=== PATIENT | male | born 1960 | race Caucasian/White ===

== ENCOUNTER 2018-06-01 11:37 | Observation (INO) | payer OTHER ==
--- NOTE | 2018-06-01 11:46 | EDPHY ---
H & P Time Seen by Provider: 06/01/18 11:40 HPI/ROS: CHIEF COMPLAINT: Post colonoscopy bleeding HISTORY OF PRESENT ILLNESS: The patient presents to the ED with complaints of post colonoscopy bleeding. The patient recently had a colonoscopy and had 3 polyps resected. He has had increasing bright red blood per rectum over the past day. He discussed this with the covering director orange Dr. Garcia who recommended he come to the emergency department evaluation and likely admission. The patient reports approximately 5 episodes of bloody bowel movements over the past 24 hr. He denies any associated lightheadedness or dizziness. The patient does take a baby aspirin on a daily basis. The patient did take a Celebrex tablet last night. REVIEW OF SYSTEMS: A comprehensive 10 point review of systems is otherwise negative aside from elements mentioned in the history of present illness. Source: Patient Exam Limitations: No limitations - Physical Exam Exam: General Appearance: Alert, no distress Eyes: Pupils equal and round no pallor or injection ENT, Mouth: Mucous membranes moist Respiratory: There are no retractions, lungs are clear to auscultation Cardiovascular: Regular rate and rhythm Gastrointestinal: Abdomen is soft and nontender, no masses, bowel sounds normal Neurological: 5/5 strength all 4 extremities Skin: Warm and dry, no rashes Musculoskeletal: Neck is supple nontender Extremities: symmetrical, full range of motion Psychiatric: Patient is oriented X 3, there is no agitation Constitutional: Initial Vital Signs Temperature (C) 36.9 C 06/01/18 11:46 Heart Rate 72 06/01/18 11:46 Respiratory Rate 16 06/01/18 11:46 Blood Pressure 138/90 H 06/01/18 11:46 O2 Sat (%) 96 06/01/18 11:46 O2 Delivery Mode Room Air Allergies/Adverse Reactions: rosuvastatin calcium [From Crestor] Allergy (Severe, Verified 01/30/11 07:16) MUSCLE WEAKNESS amiodarone [Amiodarone] Allergy (Verified 01/30/11 07:16) Rash Home Medications: Medication Instructions Recorded Aspirin 325 mg 01/26/10 Levothyroxine 01/26/10 Protonix 01/26/10 metoPROLOL TART 01/26/10 Medical Decision Making ED Course/Re-evaluation: The case was discussed with Dr. Garcia from Gastroenterology. He recommends admission to hospital. The patient is currently hemodynamically stable with a reassuring initial CBC. The patient has been typed and screened. The patient will be admitted to the hospital and have a bowel prep today. Consultation was made with the hospitalist service at 12:30 p.m.. The patient will be admitted by Dr. Ilan Multani. Differential Diagnosis: Differential diagnosis considered includes critical anemia, lower GI bleed, coagulopathy - Data Points Laboratory Results: Laboratory Results 06/01/18 11:50 06/01/18 11:50 06/01/18 06/01/18 06/01/18 11:50 11:50 11:50 WBC RBC Hgb Hct MCV MCH MCHC RDW Plt Count MPV Neut % (Auto) Lymph % (Auto) [place] % (Auto) Eos % (Auto) Baso % (Auto) Nucleat RBC Rel Count Absolute Neuts (auto) Absolute Lymphs (auto) Absolute Monos (auto) Absolute Eos (auto) Absolute Basos (auto) Absolute Nucleated RBC Immature Gran % Immature Gran # PT 13.7 SEC SEC (12.0-15.0) INR 1.03 (0.83-1.16) APTT 33.1 SEC SEC (23.0-38.0) Sodium 140 mEq/L mEq/L (135-145) Potassium 3.7 mEq/L mEq/L (3.3-5.0) Chloride 107 mEq/L mEq/L (97-110) Carbon Dioxide 21 mEq/l L mEq/l (22-31) Anion Gap 12 mEq/L mEq/L (8-16) BUN 25 mg/dL H mg/dL (7-23) Creatinine 0.9 mg/dL mg/dL (0.7-1.3) Estimated GFR > 60 Glucose 97 mg/dL mg/dL (70-100) Calcium 9.8 mg/dL mg/dL (8.5-10.4) Patient ABO/Rh Pending Antibody Screen Pending 06/01/18 11:50 WBC 7.24 10^3/uL 10^3/uL (3.80-9.50) RBC 4.91 10^6/uL 10^6/uL (4.40-6.38) Hgb 15.2 g/dL g/dL (13.7-17.5) Hct 42.1 % % (40.0-51.0) MCV 85.7 fL fL (81.5-99.8) MCH 31.0 pg pg (27.9-34.1) MCHC 36.1 g/dL g/dL (32.4-36.7) RDW 13.0 % % (11.5-15.2) Plt Count 226 10^3/uL 10^3/uL (150-400) MPV 9.3 fL fL (8.7-11.7) Neut % (Auto) 69.9 % % (39.3-74.2) Lymph % (Auto) 19.6 % % (15.0-45.0) Beau[place] % (Auto) 8.6 % % (4.5-13.0) Eos % (Auto) 1.4 % % (0.6-7.6) Baso % (Auto) 0.4 % % (0.3-1.7) Nucleat RBC Rel Count 0.0 % % (0.0-0.2) Absolute Neuts (auto) 5.06 10^3/uL 10^3/uL (1.70-6.50) Absolute Lymphs (auto) 1.42 10^3/uL 10^3/uL (1.00-3.00) Absolute Monos (auto) 0.62 10^3/uL 10^3/uL (0.30-0.80) Absolute Eos (auto) 0.10 10^3/uL 10^3/uL (0.03-0.40) Absolute Basos (auto) 0.03 10^3/uL 10^3/uL (0.02-0.10) Absolute Nucleated RBC 0.00 10^3/uL 10^3/uL (0-0.01) Immature Gran % 0.1 % % (0.0-1.1) Immature Gran # 0.01 10^3/uL 10^3/uL (0.00-0.10) PT INR APTT Sodium Potassium Chloride Carbon Dioxide Anion Gap BUN Creatinine Estimated GFR Glucose Calcium Patient ABO/Rh Antibody Screen Medications Given: Discontinued Medications Sodium Chloride (Ns) 1,000 mls @ 0 mls/hr IV EDNOW ONE; Wide Open PRN Reason: Protocol Stop: 06/01/18 11:48 Last Admin: 06/01/18 12:02 Dose: 1,000 mls Departure - Departure Disposition: [facility] Acute Clinical Impression: Status post colonoscopy with polypectomy, Lower GI bleed Condition: Good Referrals: Russell Arora MD [Primary Care Provider] - As per Instructions
[2018-06-01] MEDS ORDERED: NS 1,000 ML IV ONE (11:47)
[2018-06-01 12:02] LABS: PLATELET COUNT 226 10^3/uL (150-400)
[2018-06-01 12:22] LABS: INR 1.03 (0.83-1.16); PROTIME(PATIENT) 13.7 SEC (12.0-15.0)
[2018-06-01] MEDS ORDERED: ONDANSETRON 4 MG/2 ML VIAL IVP PRN (13:35)
[2018-06-01] MEDS ORDERED: ACETAMINOPHEN 325 MG TAB PO PRN (13:35)
[2018-06-01] MEDS ORDERED: ONDANSETRON DISINTEGRATING 4 MG TAB PO PRN (13:35)
--- NOTE | 2018-06-01 13:41 | PDGENHP ---
History and Physical - Chief Complaint bloody stool - History of Present Illness 58 yo male with h/o htn, A fib, and non-occlusive CAD presents to ED with rectal bleeding less than 24 hrs after colonoscopy, performed by Dr. Ratliff, with 3 polypectomies. He had 2 bloody bowel movements last night. The first event was described as dark red and was associated with mild lightheadedness and he felt a bit clammy. He notes he thinks he panicked a bit. He then had another bloody stool, which he described as bright red blood. He hasn't taken much oral intake. This morning, he had 2 more bloody stools and came to the ED. He denies abdominal pain, nausea or vomiting. No fevers or chills. At this time, he denies dizziness, lightheadedness, CP or SOB. His h&h were stable in the ED. GI was consulted and he is admitted to the hospital for further management. History Information - Allergies/Home Medication List Allergies/Adverse Reactions: rosuvastatin calcium [From Crestor] Allergy (Severe, Verified 01/30/11 07:16) MUSCLE WEAKNESS amiodarone [Amiodarone] Allergy (Verified 01/30/11 07:16) Rash amoxicillin Allergy (Verified 06/01/18 13:02) Rash Home Medications: Aspirin [Aspirin 81mg (*)] 81 mg PO DAILY 06/01/18 [Last Taken 05/30/18] Chlorthalidone [Chlorthalidone 25 mg (*)] 25 mg PO DAILY@12 06/01/18 [Last Taken 05/31/18] Herbals/Supplements -Info Only 1 ea PO DAILY 06/01/18 [Last Taken Unknown] Irbesartan [Avapro 150 mg (*)] 150 mg PO DAILY 06/01/18 [Last Taken 06/01/18] Levothyroxine [Synthroid 150 mcg (*)] 150 mcg PO DAILY06 06/01/18 [Last Taken ] Metoprolol Tartrate [Lopressor 50 mg (*)] 25 mg PO BID 06/01/18 [Last Taken ] celeCOXIB [Celebrex (*)] 400 mg PO DAILY 06/01/18 [Last Taken 05/31/18] I have personally reviewed and updated: family history, medical history, social history, surgical history - Past Medical History Additional medical history: Hypertension. A fib s/p ablatio in 2009 and DCCV 2010, on ASA. CAD - non-obstructive by angiogram in 2010. colon polyps. hypothyroidism - Surgical History Additional surgical history: thyroidectomy. colonoscopy 05/2018. angiogram 2010 - Family History Positive for: non-pertinent - Social History Smoking Status: Current some day smoker Alcohol Use: Occasionally Drug Use: None Additional social history: Lives independently, . at bedside, she is a crocheter of Systems Review of Systems: ROS: 10pt was reviewed & negative except for what was stated in HPI & below Physical Exam Physical Exam: Temp Pulse Resp BP Pulse Ox 36.6 C 64 16 106/70 97 06/01/18 13:20 06/01/18 13:20 06/01/18 13:20 06/01/18 13:20 06/01/18 13:20 Constitutional: no apparent distress Eyes: PERRL Ears, Nose, Mouth, Throat: moist mucous membranes Cardiovascular: regular rate and rhythym, no murmur, rub, or gallop Respiratory: no respiratory distress, clear to auscultation Gastrointestinal: normoactive bowel sounds, soft, non-tender abdomen Skin: warm Musculoskeletal: full muscle strength Neurologic: AAOx3 Psychiatric: interacting appropriately Lab Data & Imaging Review 06/01/18 11:50 06/01/18 11:50 WBC 7.24 10^3/uL (3.80-9.50) 06/01/18 11:50 RBC 4.91 10^6/uL (4.40-6.38) 06/01/18 11:50 Hgb 15.2 g/dL (13.7-17.5) 06/01/18 11:50 Hct 42.1 % (40.0-51.0) 06/01/18 11:50 MCV 85.7 fL (81.5-99.8) 06/01/18 11:50 MCH 31.0 pg (27.9-34.1) 06/01/18 11:50 MCHC 36.1 g/dL (32.4-36.7) 06/01/18 11:50 RDW 13.0 % (11.5-15.2) 06/01/18 11:50 Plt Count 226 10^3/uL (150-400) 06/01/18 11:50 MPV 9.3 fL (8.7-11.7) 06/01/18 11:50 Neut % (Auto) 69.9 % (39.3-74.2) 06/01/18 11:50 Lymph % (Auto) 19.6 % (15.0-45.0) 06/01/18 11:50 [place] % (Auto) 8.6 % (4.5-13.0) 06/01/18 11:50 Eos % (Auto) 1.4 % (0.6-7.6) 06/01/18 11:50 Baso % (Auto) 0.4 % (0.3-1.7) 06/01/18 11:50 Nucleat RBC Rel Count 0.0 % (0.0-0.2) 06/01/18 11:50 Absolute Neuts (auto) 5.06 10^3/uL (1.70-6.50) 06/01/18 11:50 Absolute Lymphs (auto) 1.42 10^3/uL (1.00-3.00) 06/01/18 11:50 Absolute Monos (auto) 0.62 10^3/uL (0.30-0.80) 06/01/18 11:50 Absolute Eos (auto) 0.10 10^3/uL (0.03-0.40) 06/01/18 11:50 Absolute Basos (auto) 0.03 10^3/uL (0.02-0.10) 06/01/18 11:50 Absolute Nucleated RBC 0.00 10^3/uL (0-0.01) 06/01/18 11:50 Immature Gran % 0.1 % (0.0-1.1) 06/01/18 11:50 Immature Gran # 0.01 10^3/uL (0.00-0.10) 06/01/18 11:50 PT 13.7 SEC (12.0-15.0) 06/01/18 11:50 INR 1.03 (0.83-1.16) 06/01/18 11:50 APTT 33.1 SEC (23.0-38.0) 06/01/18 11:50 Sodium 140 mEq/L (135-145) 06/01/18 11:50 Potassium 3.7 mEq/L (3.3-5.0) 06/01/18 11:50 Chloride 107 mEq/L (97-110) 06/01/18 11:50 Carbon Dioxide 21 mEq/l (22-31) L 06/01/18 11:50 Anion Gap 12 mEq/L (8-16) 06/01/18 11:50 BUN 25 mg/dL (7-23) H 06/01/18 11:50 Creatinine 0.9 mg/dL (0.7-1.3) 06/01/18 11:50 Estimated GFR > 60 06/01/18 11:50 Glucose 97 mg/dL (70-100) 06/01/18 11:50 Calcium 9.8 mg/dL (8.5-10.4) 06/01/18 11:50 Patient ABO/Rh O POSITIVE 06/01/18 11:50 Antibody Screen NEGATIVE 06/01/18 11:50 Assessment & Plan Assessment: Lower GI bleed - Status post colonoscopy with polypectomy - h&h normal on arrival, hemodynamically stable -discussed with Dr. Garcia, who plans for colon prep tonight and will repeat c -scope in am -trend h&h, no indication for transfusion at this time -clears for now, NPO at midnight -hold asa and celebrex Hypertension - hold anti-hypertensives given GI bleed and low-iza bp (100's/70's ), resume as indicated H/O Atrial fibrillation - s/p ablation x2, HR now regular -resume BB when it's clear his BP will tolerate -ASA held CAD - non-occlusive by angiogram 2010. Currently stable, CP free - holding ASA due to GIB Hypothyroidism - cont levothyroxine Full code Dispo - obs
--- NOTE | 2018-06-01 14:46 | GCON ---
DATE OF CONSULTATION: 06/01/2018 REFERRING PHYSICIAN: Chantel Camejo MD REQUESTING PHYSICIAN: Chantel Cmaejo MD. REASON FOR CONSULTATION: Hematochezia. Dear Dr. Camejo: Thank you very kindly for asking me to evaluate this patient in consultation for a chief complaint of hematochezia. He is a pleasant 58-year-old gentleman who had a colonoscopy on Sunday. He had 3 mar yps removed. Two of them were removed by a snare with cautery technique. He developed a clot with m aroon blood last evening, which has persisted. Today, he had a significant amount of blood and felt slightly lightheaded. He called our answering service who put him in contact with me and I recommend ed he come to the emergency room for evaluation. He has had a total of 6 episodes of bleeding since last evening. In the emergency room, his initial hemoglobin was 15. His blood pressure was 138/90 w ith a heart rate of 72. He denies any abdominal pain or vomiting. There hs been no melena. His las t bowel movement was at 9:30 this morning and was still quite bloody. I am asked to assist with furt her evaluation and management. PAST MEDICAL HISTORY: Significant for nonocclusive coronary disease, heartburn, hypertension, and hy pothyroidism. He takes Celebrex for osteoarthritis. Personal history of colon polyps. PAST SURGICAL HISTORY: None. MEDICATIONS: On admission include aspirin, levothyroxine, Protonix, metoprolol, and Celebrex 400 mg daily, chlorthalidone 25 mg daily, irbesartan 150 mg daily. ALLERGIES: Include rosuvastatin, which caused muscle weakness. Amiodarone, which caused rash, and a moxicillin. FAMILY HISTORY: Negative for bleeding disorders or colon cancer. SOCIAL HISTORY: No tobacco. No alcohol. No substance abuse. He is . His is a nurse. They live in [place]. REVIEW OF SYSTEMS: CONSTITUTIONAL: Some malaise with a little bit lightheaded. HEENT: No dizzines s or true vertigo. No syncope. No headache. No sore throat. No epistaxis. No trouble swallowing. PULMONARY: No cough or shortness of breath. No dyspnea with exertion. Denies orthopnea. CARDIOV ASCULAR: No chest pain, palpitations, or syncope. GI: Significant for painless hematochezia with b luanaody diarrhea. RHEUMATOLOGIC: Significant for some arthralgias for which he takes Celebrex. He to ok 1 dose of Celebrex postprocedure on Sunday. NEUROLOGIC: No paresthesias, weakness, or falls. GE NITOURINARY: No hematuria. No flank pain. No dysuria. ENDOCRINE: No heat or cold intolerance. N o polyuria, polydipsia. MUSCULOSKELETAL: No joint pain, swelling, or myalgias. PHYSICAL EXAM: VITAL SIGNS: Blood pressure was 138/90 with a mean arterial pressure of 106, heart r ate of 72, oxygen saturation was 96% on room air. Temperature was 36.9. Current vital signs at 1330 reveal a blood pressure of 106/70 with a pulse of 64. GENERAL: Alert and healthy-appearing male in no acute distress. HEENT: Normocephalic, atraumatic. NECK: Supple. No jugular venous distention . No blood in the up in the nares. No blood in the oropharynx. RESPIRATORY: Lungs are clear to au scultation bilaterally. CARDIOVASCULAR: Regular rate and rhythm without murmur, rub, or gallop. GI : Abdomen is soft and nondistended. No tenderness. No rebound or guarding. Bowel sounds are sligh tly hyperactive. MUSCULOSKELETAL: No joint deformity, swelling, or warmth. No palmar erythema. SK IN: Without jaundice, rash. There is no pallor. Capillary real 5th refill is normal. NEUROLOGIC: Alert to person, place, and time. Cranial nerves normal. Motor: Nonfocal. DATABASE: Includes the following: White blood count 7.2, hematocrit 42.1 with a hemoglobin of 15.2, platelets are 226. INR is 1.0 with a PT of 13.7, PTT is 33.1. BUN is 25 with a creatinine of 0.9. IMPRESSION: 1. Hematochezia. 2. Post polypectomy hemorrhage. 3. Coronary artery disease. 4. Long-term use of selective nonsteroidal medications (celecoxib). RECOMMENDATIONS: 1. Clear liquid diet. 2. Bowel prep tonight. 3. Monitor hematocrit q.4 hours. 4. Type and hold 2 units of blood. 5. Avoid any NSAIDs including aspirin and including nonselective and selective non-steroidals (princ ipally, discontinue celecoxib). 6. Colonoscopy tomorrow morning to eval and treat the post polypectomy sites, which are highly likel y the cause of bleeding. 7. If he develops more clinically significant bleeding with any evidence of instability, we will per form a colonoscopy more urgently to evaluate and assess the bleeding sites with hopefully providing e ndoscopic therapy. 8. Further recommendations to follow. Please call with any urgent questions. /[id number]/MODL
[2018-06-01] MEDS ORDERED: PEG 3350/NA SULF,BICARB,CL/KCL (GAVILYTE-G) 4000 ML BTL PO ONE (16:00)
--- NOTE | 2018-06-01 16:53 | ASMTCMCOM ---
CM Note CM Note Notes: Spoke with RN, pt came in 24 hrs after a colonoscopy for rectal bleeding. He is independent and no therapies ordered, anticipate he will dc home w/support of when medically stable. CM available for any changes. DC Plan: Independent Date Signed: 06/01/2018 04:52 PM Electronically Signed By:Yessy García RN
--- NOTE | 2018-06-01 16:55 | ASMTLACE ---
LIZETH Comorbidities - select Answers: Coronary Artery Disease all that apply Other Notes: HTN, Hypothyroid # of Emergency department Answers: 1-2 visits in the last 6 months Score: 4 Date Signed: 06/01/2018 04:55 PM Electronically Signed By:Yessy García RN
[2018-06-01] MEDS: NS W/ 20 KCl/L 1,000 ML IV SCH (20:19)
[2018-06-01] MEDS: METOPROLOL TARTRATE 50 MG TAB PO SCH (20:20)
[2018-06-02] MEDS ORDERED: LEVOTHYROXINE 150 MCG TAB PO SCH (06:00)
[2018-06-02] MEDS: NS W/ 20 KCl/L 1,000 ML IV SCH (06:21)
[2018-06-02] MEDS ORDERED: LR 1,000 ML IV ONE (07:41)
--- NOTE | 2018-06-02 07:58 | PDANEPAE ---
ANE Past Medical History - Pulmonary History Hx Oxygen in Use at Home: No Hx Sleep Apnea: No Sleep Apnea Screening Result - Last Documented: Negative - Endocrine History Hx Diabetes: No - Chronic Pain History Chronic Pain: Yes ANE Review of Systems Review of Systems: ANE Patient History - Allergies Allergies/Adverse Reactions: rosuvastatin calcium [From Crestor] Allergy (Severe, Verified 01/30/11 07:16) MUSCLE WEAKNESS amiodarone [Amiodarone] Allergy (Verified 01/30/11 07:16) Rash amoxicillin Allergy (Verified 06/01/18 13:02) Rash - Home Medications Home Medications: Aspirin [Aspirin 81mg (*)] 81 mg PO DAILY 06/01/18 [Last Taken 05/30/18] Chlorthalidone [Chlorthalidone 25 mg (*)] 25 mg PO DAILY@12 06/01/18 [Last Taken 05/31/18] Herbals/Supplements -Info Only 1 ea PO DAILY 06/01/18 [Last Taken Unknown] Irbesartan [Avapro 150 mg (*)] 150 mg PO DAILY 06/01/18 [Last Taken 06/01/18] Levothyroxine [Synthroid 150 mcg (*)] 150 mcg PO DAILY06 06/01/18 [Last Taken ] Metoprolol Tartrate [Lopressor 50 mg (*)] 25 mg PO BID 06/01/18 [Last Taken ] celeCOXIB [Celebrex (*)] 400 mg PO DAILY 06/01/18 [Last Taken 05/31/18] - NPO status NPO Since - Liquids (Date): 06/02/18 NPO Since - Liquids (Time): 00:00 NPO Since - Solids (Date): 06/02/18 NPO Since - Solids (Time): 00:00 - Smoking Hx Smoking Status: Current some day smoker - Alcohol Use Alcohol Use: Occasionally ANE Labs/Vital Signs - Labs Result Diagrams: 06/02/18 04:18 06/01/18 11:50 - Vital Signs Blood Pressure: 113/76 Heart Rate: 71 Respiratory Rate: 16 O2 Sat (%): 92 Height: 187.96 cm Weight: 106.594 kg ANE Physical Exam - Airway Neck exam: FROM Mallampati Score: Class 3 - Pulmonary Pulmonary: no respiratory distress - Cardiovascular Cardiovascular: regular rate and rhythym - ASA Status ASA Status: III ANE Anesthesia Plan Total IV Anesthesia: Yes
[2018-06-02] MEDS ORDERED: PROPOFOL/EMULSION 500 MG/50 ML BOTTLE IV ONE ×2 (07:59→08:17)
[2018-06-02] MEDS ORDERED: LIDOCAINE 2% 100 MG/5 ML SYR ONE (07:59)
[2018-06-02] MEDS ORDERED: NALOXONE HCL 0.4 MG/ML INJ IVP PRN (08:34)
[2018-06-02] MEDS ORDERED: ALBUTEROL 3 ML DEYVIAL IH PRN (08:34)
[2018-06-02] MEDS ORDERED: ONDANSETRON 4 MG/2 ML VIAL IVP PRN (08:34)
--- NOTE | 2018-06-02 09:00 | POSTANESTH ---
Post Anesthetic Evaluation Cardiovascular Status: Similar to Pre-Op Cond Respiratory Status: Similar to Pre-op Cond. Level of Consciousness/Mental Status: Mildly Sleepy, Arousable Pain Control: Adequate, Prn Tx Ordered Nausea/Vomiting Control: Adequate, Prn Tx Ordered Complications Possibly Related to Anesthesia: None Noted
[2018-06-02] MEDS: METOPROLOL TARTRATE 50 MG TAB PO SCH (09:24)
[2018-06-02 11:56] VITALS: BP 111/69
--- NOTE | 2018-06-02 14:22 | PDDCSUM ---
Discharge Summary Discharge Summary: Date of Admission: 06/01/2018 Date of Discharge: 06/02/2018 Consultants: GI Procedures: colonoscopy Discharge Diagnoses: 1. Lower GI bleed due to bleeding polypectomy sites 2. Mild blood loss anemia 3. H/o atrial fibrillation s/p ablation 4. Non-obstructive CAD 5. Hypothyroidism Brief Hospital Course: 58yo M with history of atrial fibrillation on aspirin, non-obstructive CAD presented one day after colonoscopy with blood in stool. Remained hemodynamically stable, did not need PRBC transfusion. Had repeat c-scope with Dr Garcia who cauterized bleeding polypectomy sites with good result. H/H stable. We have discontinued his aspirin and celecoxib and recommend holding for at least 2 weeks. Counseled on avoiding all NSAIDs. His hgb was 13.7 on discharge. Of note, at time of discharge he reported that he takes his celecoxib for "prostate swelling" which has been chronic for him. It is unclear what work up has been done for this. He did not have signs of acute prostatitis, query a chronic component though. Regarding his afib, his [id number] or 1 and has been on aspirin for stroke prevention. He was in sinus rhythm here. He has had ablations in the past. Medications: Please refer to EMR for complete list. Changes this hospitalization include discontinuing his aspirin and celecoxib. I have prescribed a short course of tramadol to help with pain. Follow Up Plan: 1. PCP clinic visit with Dr Arora next week 2. Discuss risk/benefit of restarting aspirin. Would likely hold celecoxib indefinitely 3. Evaluate etiology of prostate pain Physical Exam: Vitals reviewed, normotensive and HR stable. Alert and oriented. RRR without murmur, lungs clear, abdomen soft, no rashes.
--- NOTE | 2018-06-02 16:05 | ASDISCHSUM ---
Discharge Information Plan Status:Home with No Needs Medically Cleared to Leave:06/02/2018 Discharge Date:06/02/2018 01:47 PM CM D/C Disposition:Home, Routine, Self-Care ADT D/C Disposition:Home, Routine, Self-Care Projected Discharge Date:06/02/2018 12:00 AM Transportation at D/C:Family Discharge Delay Reason: Follow-Up Date:06/02/2018 12:00 AM Discharge Slot:2 - 12:01 pm - 18:00 pm Final Diagnosis:Lower GI bleed Placement Information Patient Contact Information Contact Name:ALYSON Relationship: Address:[address] City:[place] Alternate Phone: State/Zip Code:[place] [address] Email: Financial Information Financial Class:HMO and PPO Plans Primary Plan Desc:[employer] Primary Plan Number:[id number] Secondary Plan Desc: Secondary Plan Number: Assessment Information [facility] CM Progress Note CM Note CM Note Notes: Spoke with RN, pt came in 24 hrs after a colonoscopy for rectal bleeding. He is independent and no therapies ordered, anticipate he will dc home w/support of when medically stable. CM available for any changes. DC Plan: Independent Date Signed: 06/01/2018 04:52 PM Electronically Signed By:Yessy García RN LACE LACE Comorbidities - select Answers: Coronary Artery Disease all that apply Other Notes: HTN, Hypothyroid # of Emergency department Answers: 1-2 visits in the last 6 months Score: 4 Date Signed: 06/01/2018 04:55 PM Electronically Signed By:Ysesy García RN Intervention Information
--- NOTE | 2018-06-02 16:08 | ASMTDCNOTE ---
Case Management Discharge Discharge Order Complete? Answers: Yes Patient to Obtain Answers: via Family Medications Transportation Arranged Answers: Family/Friends Family Notified Answers: Yes Discharge Comments Notes: CM discussed patient with RN, patient to discharge home today independent with family. Will follow up recommended. CM available to if any CM needs arise. Date Signed: 06/02/2018 04:07 PM Electronically Signed By:Breanna Galvin
--- NOTE | 2018-06-06 11:08 | GIREPORT ---
Formerly [facility], Later [facility] - Endoscopy Department Patient Name: Carlos Pisano Procedure Date: 06/02/2018 8:04 AM Patient Type: Inpatient Attending MD/ ER Physician: Michael Garcia MD Procedure: Colonoscopy Indications: Hematochezia Providers: Michael Garcia MD Medicines: Propofol per Anesthesia Complications: No immediate complications. Description of Procedure: After obtaining informed consent, the scope was passed under direct vis ion. Throughout the procedure, the patient's blood pressure, pulse, and oxyg en saturations were monitored continuously. The Colonoscope with irrigatio n channel was introduced through the anus and advanced to the cecum, identified by appendiceal orifice and ileocecal valve. The colonoscopy was performed without difficulty. The patient tolerated the procedure well. The quality of the bowel preparation was good. Findings: The perianal and digital rectal examinations were normal. Pertinent negatives include normal sphincter tone, no palpable rectal lesions and normal prostate (size, shape, and consistency). A single (solitary) twelve mm ulcer was found in the proximal ascending colon. A clot was seen with a visible vessel and oozing blood was prese nt. Stigmata of recent bleeding were present. For hemostasis, the clot was removed revealing the underlying vessel. Three hemostatic clips were successfully placed (MR conditional). There was no bleeding at the end of the procedure. A single (solitary) ten mm ulcer was found in the transverse colon. No active bleeding was present. Stigmata of recent bleeding (pigmented material) were present at the center of the polypectomy ulcer. For hemostasis, two hemostatic clips were successfully placed (MR condition al). There was no bleeding at the end of the procedure. Estimated Blood Loss: Estimated blood loss: none. Post Op Diagnosis: - A single (solitary) ulcer in the proximal ascending colon. Clips (MR conditional) were placed. - A single (solitary) ulcer in the transverse colon. Clips (MR conditio nal) were placed. - No specimens collected. Recommendation: - Resume regular diet today. - No NSAIDs or ASA for 2 weeks. - Check hematocrit later today around 1pm and if stable without further clinical bleeding he may go home. - Return patient to [facility] for possible discharge same day. - Thank you for allowing me to be involved in the care of your patient. Attending Participation: I personally performed the entire procedure without the assistance of a fellow, resident or surg ical liaison inspection laboratory assistant. Michael Garcia MD Michael Garcia MD 06/02/2018 8:36:47 AM This report has been signed electronicallyDavid MD Radha Number of Addenda: 0 Note Initiated On: 06/02/2018 8:04 AM Total Procedure Duration Time 0 hours 18 minutes 23 seconds [email or web address]
== END 2018-06-02 13:47 | disposition home or self-care (01) ==
LOC: F3E 13:15
PROVIDERS: ADMIT Internal Medicine; ATTEND Internal Medicine
PROC: 0W3P8ZZ Control Bleeding in Gastrointestinal Tract, Via Natural or Artificial Opening Endoscopic (ICD-10-PCS; principal; 2018-06-02 08:00)
DX: K91.840 Postprocedural hemorrhage of a digestive system organ or structure following a digestive system procedure (principal); K92.2 Gastrointestinal hemorrhage, unspecified; D50.0 Iron deficiency anemia secondary to blood loss (chronic); Z79.82 Long term (current) use of aspirin; Z79.1 Long term (current) use of non-steroidal anti-inflammatories (NSAID); I25.10 Atherosclerotic heart disease of native coronary artery without angina pectoris; E03.9 Hypothyroidism, unspecified; F17.210 Nicotine dependence, cigarettes, uncomplicated
CPT/HCPCS: 45382; 96360; 99285; G0378; J2001; J2704